=== PATIENT | female | born 1960 | race Two or more races ===

== ENCOUNTER 2021-02-23 14:46 | Outpatient (CLI) | payer OTHER | END 2021-02-23 15:07 | disposition home or self-care (01) | LOC: RAD 14:46 | DX: M79.641 Pain in right hand (principal); M79.642 Pain in left hand ==

== ENCOUNTER 2021-10-17 12:17 | Outpatient (CLI) | payer OTHER | END 2021-10-17 12:32 | disposition home or self-care (01) | LOC: SONOGRAMA 12:17 | PROVIDERS: ATTEND Obstetrics & Gynecology Gynecology | DX: N60.11 Diffuse cystic mastopathy of right breast (principal); N60.12 Diffuse cystic mastopathy of left breast; N83.291 Other ovarian cyst, right side; C50.011 Malignant neoplasm of nipple and areola, right female breast; M89.8X8 Other specified disorders of bone, other site; M81.0 Age-related osteoporosis without current pathological fracture; D25.1 Intramural leiomyoma of uterus ==

== ENCOUNTER 2022-08-02 12:53 | Outpatient (CLI) | payer OTHER | END 2022-08-02 12:55 | disposition home or self-care (01) | LOC: NUCLEAR 12:53 | PROVIDERS: ATTEND Internal Medicine Rheumatology | DX: M81.0 Age-related osteoporosis without current pathological fracture (principal) ==

== ENCOUNTER 2022-09-25 11:22 | Outpatient (CLI) | payer OTHER | END 2022-09-25 11:25 | disposition home or self-care (01) | LOC: SONOGRAMA 11:22 | PROVIDERS: ATTEND Obstetrics & Gynecology Gynecology | DX: N83.209 Unspecified ovarian cyst, unspecified side (principal); N83.9 Noninflammatory disorder of ovary, fallopian tube and broad ligament, unspecified; N83.292 Other ovarian cyst, left side; N83.291 Other ovarian cyst, right side ==

== ENCOUNTER 2023-10-15 12:46 | Outpatient (CLI) | payer OTHER | END 2023-10-15 12:48 | disposition home or self-care (01) | LOC: SONOGRAMA 12:46 | PROVIDERS: ATTEND Obstetrics & Gynecology Gynecology | DX: N83.291 Other ovarian cyst, right side (principal) ==

== ENCOUNTER 2024-10-15 09:43 | Outpatient (CLI) | payer OTHER | END 2024-10-15 09:51 | disposition home or self-care (01) | LOC: SONOGRAMA 09:43 | PROVIDERS: ATTEND Obstetrics & Gynecology Gynecology | DX: C50.011 Malignant neoplasm of nipple and areola, right female breast (principal); N63 Unspecified lump in breast; N60.11 Diffuse cystic mastopathy of right breast; N60.12 Diffuse cystic mastopathy of left breast; R92.1 Mammographic calcification found on diagnostic imaging of breast; M89.9 Disorder of bone, unspecified; M81.0 Age-related osteoporosis without current pathological fracture; D25.1 Intramural leiomyoma of uterus; M85.9 Disorder of bone density and structure, unspecified; N83.292 Other ovarian cyst, left side; N83.291 Other ovarian cyst, right side ==

== ENCOUNTER 2024-10-15 10:45 | Outpatient (CLI) | payer OTHER | END 2024-10-15 10:49 | disposition home or self-care (01) | LOC: NUCLEAR 10:45 | PROVIDERS: ATTEND Obstetrics & Gynecology Gynecology | DX: M81.0 Age-related osteoporosis without current pathological fracture (principal) ==

== ENCOUNTER 2024-12-16 08:48 | Outpatient (CLI) | payer OTHER | END 2024-12-16 08:50 | disposition home or self-care (01) | LOC: SONOGRAMA 08:48 | PROVIDERS: ATTEND Obstetrics & Gynecology Gynecology | DX: R31.21 Asymptomatic microscopic hematuria (principal); R93.429 Abnormal radiologic findings on diagnostic imaging of unspecified kidney ==